=== PATIENT | female | born 1940 | race Caucasian/White ===

== ENCOUNTER 2016-10-06 02:20 | Inpatient (IN) | payer OTHER ==
[~2016-10-06] VITALS: Ht 170.2 cm; Wt 78.5 kg
[~2016-10-06 02:20] MED LIST: Aspirin E.C. PO; CARDIZEM CD180 MG PO; CENESTIN0.9 MG PO; Keflex PO; Percocet 5/325,Endoc PO
[2016-10-06 03:11] LABS: HEMATOCRIT 35.9 % (36.0-46.0); MCH 28.1 PG (29.0-34.0); MCHC 32.3 G/DL (30.0-36.0); MCV 86.9 FL (83-99); PLATELET COUNT 288 K/uL (156-360); RBC DIS.WIDTH-CV 16.3 % (11.8-14.6); RBC DIS.WIDTH-SD 51.1 % (39-53); RED BLOOD COUNT 4.13 M/uL (3.80-5.20); WHITE BLOOD COUNT 6.5 K/uL (4.1-10.2)
[2016-10-06 03:19] LABS: CHLORIDE 105 mEq/L (99-109); POTASSIUM 4.3 mEq/L (3.7-5.4)
[2016-10-06 03:20] LABS: SODIUM 140 mEq/L (136-147)
[2016-10-06 03:21] LABS: GLUCOSE 115 mg/dL (70-99)
[2016-10-06 03:23] LABS: ANION GAP 11 MEQ/L (2-14)
[2016-10-06 03:25] LABS: GFR ESTIMATE (CALCULATED) > 59 mL/min/
[2016-10-06 03:26] LABS: UREA NITROGEN (BUN) 18 mg/dL (9-23)
[2016-10-06 03:31] LABS: TROP-I INTERPRETATION NEGATIVE; TROPONIN-I 0.04 ng/mL (0.0-0.30)
[2016-10-06 06:57] VITALS: BP 182/90
[2016-10-06 11:34] VITALS: BP 167/86
== END 2016-10-06 12:30 | disposition left against medical advice (07) | DRG 308 ==
LOC: EME 02:20 → EDOF 04:58 → 4EAST 06:12
DX: I48.91 Unspecified atrial fibrillation (principal); I11.0 Hypertensive heart disease with heart failure; I50.33 Acute on chronic diastolic (congestive) heart failure; Z91.14 Patient's other noncompliance with medication regimen; Z91.19 Patient's noncompliance with other medical treatment and regimen; Z95.0 Presence of cardiac pacemaker; I87.8 Other specified disorders of veins; K21.9 Gastro-esophageal reflux disease without esophagitis; F39 Unspecified mood [affective] disorder
CPT/HCPCS: 71020; 80048; 80053; 84484; 85027; 93005; 99281; 99285